=== PATIENT | female | born 1970 ===

== ENCOUNTER 2024-12-23 10:38 | Outpatient (CLI) | payer OTHER, SELFPAY ==
--- NOTE | 2024-12-23 11:30 | CRLHL7_ITS ---
For Patients: As a result of the Century Cures Act, medical imaging exams and procedure reports are released immediately into your electronic medical record. You may view this report before your referring provider. If you have questions, please contact your health care provider. Indication: F/U ADRENAL MASS Technique: Pre and postcontrast CT of the abdomen performed. 85 cc Isovue 370 intravenous contrast. Postcontrast images in the portal venous phase and 15 minute delayed phase. Please note that all CT scans at this facility use dose modulation, iterative reconstruction, and/or weight-based dosing when appropriate to reduce radiation dose to as low as reasonably achievable. Comparison: 03/05/2024 Findings: 2.6 millimeter nonobstructing stone in the right kidney is unchanged. Normal left adrenal gland. Right adrenal nodule is similar measuring 2.6 cm with mixed densities including calcification. Enhancement characteristics are similar. Liver parenchyma normal. Normal gallbladder. Pancreas unremarkable. Normal spleen. No hiatal hernia. No adenopathy. No bowel obstruction. Lung bases are clear. No fracture. Impression: Stable right adrenal nodule measuring 2.6 cm. Please note that all CT scans at this facility use dose modulation, iterative reconstruction, and/or weight-based dosing when appropriate to reduce radiation dose to as low as reasonably achievable. Dictated by Alex Cardoso MD @ 12/23/2024 12:42:10 PM (Electronically Signed)
== END 2024-12-23 10:39 | disposition home or self-care (01) ==
LOC: CT 10:41
PROVIDERS: Visit Provider Family Medicine
DX: E27.9 Disorder of adrenal gland, unspecified (principal); E27.8 Other specified disorders of adrenal gland; D35.01 Benign neoplasm of right adrenal gland
CPT/HCPCS: 74170; Q9967